=== PATIENT | female | born 1935 | race Caucasian/White ===

== ENCOUNTER 2016-10-18 12:39 | Outpatient (CLI) | payer MEDICARE, OTHER ==
[2016-10-18] MEDS ORDERED: GADOBUTROL 7.5 MMOL/7.5 ML VIAL IVP ONE (15:22)
--- NOTE | 2016-10-19 08:01 | MRI Report ---
EXAMS: MRI BRAIN AND ORBITS WITH AND WITHOUT contrast MRA head EXAM DATE: 10/18/2016 03:21 PM. CLINICAL HISTORY: 81-year-old with history of vision changes, frequent falls, and short-term MRI loss COMPARISON: MR brain 07/11/2006, CT sinuses 11/22/2012. TECHNIQUE: MRI: Multiplanar, multisequence T1-weighted and fluid-sensitive MRI sequences of the brain and orbits were performed. Sequences optimized for routine evaluation. Other: None. Post-processing: None. IV Contrast: 3.75 cc GADAVIST. MRA: Multiplanar, multisequence T1-weighted and fluid-sensitive MRA sequences of the brain were perfo rmed. Other: None. Post-processing: Multiplanar 3D MIP reconstructions. IV Contrast: None. FINDINGS: MRI: Brain Volume: [id number] cortical volume loss that appears progressed from 2006. Parenchyma/Dura: Moderately severe bilateral areas of T2/FLAIR signal hyperintensity that have progre ssed since 2006. Patchy FLAIR signal hyperintensity seen within the zoila. An old chronic lacunar infa rct of the medial left zoila is seen. No areas of restricted diffusion to suggest acute infarct. No ab normal areas of parenchymal susceptibility artifact. No abnormal postcontrast enhancement. Pituitary: Normal. Ventricles/Cisterns: There is a enhancing heterogeneously T2 hyperintense lesion seen posterior to th e left superior orbital fissure that measures 3 x 4 x 6 mm (cc by TRV by AP). The left optic nerve is not well-visualized but there is suspected mass effect. Review of CT sinuses 11/22/2012 demonstrate a well-circumscribed lucent lesion within the lesser wing of the left sphenoid (series 3, image 21 on study of 11/22/2012). No flow-related enhancement seen within this lesion on the MRA sequence. No abno rmal extra-axial fluid collection/mass seen. Ventricles and sulci appear prominent but appropriate for extent of volume loss. Cisterns are patent. Fluid is seen within Meckel's caves. Visualized internal auditory canals appear clear. Sinuses: The visualized paranasal sinuses, mastoid air cells, middle ear cavities are clear. Orbits: Changes of bilateral lens replacement. The clips appear symmetric in size and positioning. No intraorbital mass, inflammatory process, fluid collection, or abnormal postcontrast enhancement seen . The intraorbital optic nerves appear symmetric. The extraocular muscles appear symmetric with no ab normal postcontrast enhancement. Vasculature: There is a cut off of the right P1/P2 segment with reconstitution of flow of distal P2 s egment. Otherwise visualized major intracranial flow voids are maintained. Dural sinuses appear paten t. Bones: Normal. Other: None. MRA: RIGHT Internal Carotid (ICA): No aneurysm, stenosis or anomaly. Middle Cerebral (MCA): No aneurysm, stenosis or anomaly. Anterior Cerebral (AMY): Hypoplastic and likely absent right A1 segment. Right A2 segment appears nor mal and distorted AMY branches are seen secondary to flow through a anterior communicating artery. Th is suggest an isolated right AMY. Posterior Cerebral (BILINGUAL BRANCH MANAGER): There is abrupt cutoff of the right P1 P2 junction with reconstitution of f low within a mid to distal right P2 segment. Distal BILINGUAL BRANCH MANAGER branches appear normal. Posterior Communicating (P-COM): Not definitively see. No aneurysm. Vertebral: No aneurysm, stenosis or anomaly in the visualized upper vertebral artery. LEFT Internal Carotid (ICA): No aneurysm, stenosis or anomaly. Middle Cerebral (MCA): No aneurysm, stenosis or anomaly. Anterior Cerebral (AMY): No aneurysm, stenosis or anomaly. Posterior Cerebral (BILINGUAL BRANCH MANAGER): No aneurysm, stenosis or anomaly. Posterior Communicating (P-COM): Not definitively seen. No aneurysm. Vertebral: No aneurysm, stenosis or anomaly in the visualized upper vertebral artery. MIDLINE Anterior Communicating (A-COM): No aneurysm, stenosis or anomaly. Basilar artery: No aneurysm, stenosis, or anomaly. Other: None. IMPRESSION: MR brain 1. There is enhancing lesion within the lesser wing of the left sphenoid near the superior orbital fi ssure that measures 3 x 4 x 6 mm (CC by TR AP). A well-circumscribed lucent lesion is seen within the lesser wing of sphenoid on CT 11/22/2012. There is no flow-related enhancement seen on MRA sequence. Finding is nonspecific but may represent a potential meningioma though other possible bone pathology is not excluded. The course of the left optic nerve is not well-visualized but there is suspected mas s effect on the left optic nerve due to the enhancing mass. 2. No acute infarct, intracranial hemorrhage, additional mass, hydrocephalus, or additional abnormal postcontrast enhancement. 3. Moderate to severe white matter changes that have progressed since 2006 and may represent sequela of chronic small vessel ischemic disease. 4. No orbital mass, inflammatory process, fluid collection, or abnormal postcontrast enhancement seen . MRA head 1. Abrupt cutoff of the right P1/P2 junction with reconstitution of flow within a mid right P2 segmen t. Finding may represent chronic high grade stenosis. 2. Isolated right AMY. 3. No intracranial aneurysm seen. [facility] Referring Provider Line: [phone] SITE ID: [id number]
== END 2016-10-18 12:40 | disposition home or self-care (01) ==
LOC: DI 12:39
PROVIDERS: ATTEND Physician Assistant
DX: R29.6 Repeated falls (principal); G93.9 Disorder of brain, unspecified; R41.3 Other amnesia; H53.9 Unspecified visual disturbance
CPT/HCPCS: 70544; 70553; A9585

== ENCOUNTER 2018-11-22 10:19 | Outpatient (CLI) | payer MEDICARE, OTHER ==
--- NOTE | 2018-11-22 18:28 | XRAY Report ---
Reason: LOW BACK PAIN Procedure Date: 11/22/2018 Accession Number: [id number] / [id number] Procedure: XRS - Lumbar Spine 2 View CPT Code: FULL RESULT: EXAM: LUMBOSACRAL SPINE RADIOGRAPHY EXAM DATE: 11/22/2018 10:55 AM HISTORY: LOW BACK PAIN TECHNIQUE: AP, lateral and lateral lumbosacral 3 view exam COMPARISON: None FINDINGS: Mild mid lumbar convex right curvature. Very limited assessment of the upper to mid lumbar spine secondary to curvature and degenerative disease. There also appears to be a severe old appearing compression fracture of L2. Moderate to severe diffuse degenerative disk disease is noted with disk space narrowing at each level but most prominent at L4-L5 and L5-S1 where there is also some endplate sclerosis. No apparent spondylolisthesis. Other: Mild bilateral SI joint degenerative arthritis. IMPRESSION: Mild scoliosis, moderate to severe diffuse degenerative disk disease, old Appearing severe compression fracture of L2. Limited because of suboptimal projection angles. [facility]
--- NOTE | 2018-11-22 18:50 | XRAY Report ---
Reason: THORACIC BACK PAIN Procedure Date: 11/22/2018 Accession Number: [id number] / [id number] Procedure: XRS - Thoracic Spine 2 View CPT Code: FULL RESULT: EXAM: THORACIC SPINE RADIOGRAPHY EXAM DATE: 11/22/2018 10:55 AM HISTORY: THORACIC BACK PAIN. TECHNIQUE: AP, lateral and swimmers, 3 view exam COMPARISON: None. FINDINGS: Normal alignment. No acute fracture. T12 has a mild old appearing compression deformity. There is mild degenerative disk disease with disk space narrowing at the upper thoracic spine from T1-T6. T6-T11 has moderate degenerative disk disease with moderate disk space narrowing, small osteophyte formation and some endplate irregularity. Limited assessment on the AP view because of suboptimal projection angle. IMPRESSION: Multilevel mild to moderate degenerative disk disease. Old mild compression fracture at T12. [facility]
== END 2018-11-22 10:20 | disposition home or self-care (01) ==
LOC: DI.S 10:19
PROVIDERS: ATTEND Physician Assistant
DX: M51.36 Other intervertebral disc degeneration, lumbar region (principal); M51.37 Other intervertebral disc degeneration, lumbosacral region; M47.898 Other spondylosis, sacral and sacrococcygeal region; M51.34 Other intervertebral disc degeneration, thoracic region; M43.8X4 Other specified deforming dorsopathies, thoracic region
CPT/HCPCS: 72070; 72100

== ENCOUNTER 2021-04-11 08:00 | Outpatient (CLI) | payer MEDICARE, OTHER ==
[2021-04-11 20:02] LABS: BASOPHILS # (AUTO) 0.1 10^3/uL (0.0-0.1); BASOPHILS % (AUTO) 0.7 %; EOSINOPHILS # (AUTO) 0.2 10^3/uL (0.0-0.7); EOSINOPHILS % (AUTO) 2.8 %; HGB - HEMOGLOBIN 14.7 g/dL (12.0-16.0); LYMPHOCYTES # (AUTO) 1.1 10^3/uL (1.5-3.5); LYMPHOCYTES % (AUTO) 14.7 %; MEAN CORPUSCULAR HEMOGLOBIN 29.2 pg (27.0-31.0); MEAN CORPUSCULAR HGB CONC 32.7 g/dL (32.0-36.0); MEAN CORPUSCULAR VOLUME 89.5 fL (81.0-99.0); MEAN PLATELET VOLUME 10.1 fL (7.9-10.8); MONOCYTES # (AUTO) 0.3 10^3/uL (0.0-1.0); MONOCYTES % (AUTO) 4.7 %; NEUTROPHILS # (AUTO) 5.6 10^3/uL (1.5-6.6); NEUTROPHILS % (AUTO) 76.7 %; PLT - PLATELET COUNT 235 10^3/uL (130-450); RED BLOOD COUNT 5.03 10^6/uL (4.20-5.40); RED CELL DISTRIBUTION WIDTH 13.4 % (12.0-15.0); WHITE BLOOD COUNT 7.3 x10^3/uL (4.8-10.8)
[2021-04-11 20:22] LABS: ALBUMIN 4.1 g/dL (3.2-5.5); ALBUMIN/GLOBULIN RATIO 1.3 (1.0-2.2); BILIRUBIN,TOTAL 0.5 mg/dL (0.2-1.0); CALCIUM 9.3 mg/dL (8.5-10.3); CREATININE 1.1 mg/dL (0.4-1.0); TOTAL PROTEIN 7.3 g/dL (6.7-8.2)
[2021-04-11 20:30] LABS: THYROID STIMULATING HORMONE 1.53 uIU/mL (0.34-5.60)
[2021-04-11 20:35] LABS: FERRITIN 70.4 ng/mL (11.0-306.8)
[2021-04-11 20:55] LABS: ESTIMATED AVERAGE GLUCOSE 169 mg/dL (70-100); HEMOGLOBIN A1c% 7.5 % (4.27-6.07)
== END 2021-04-11 23:59 | disposition home or self-care (01) ==
LOC: LAB.S 08:00
PROVIDERS: ATTEND Physician Assistant Medical
DX: I10 Essential (primary) hypertension (principal); D64.9 Anemia, unspecified; R42 Dizziness and giddiness; E11.9 Type 2 diabetes mellitus without complications; R41.3 Other amnesia
CPT/HCPCS: 36415; 80053; 82728; 83036; 83540; 84443; 84466; 85025

== ENCOUNTER 2023-04-22 13:37 | Outpatient (CLI) | payer MEDICARE | END 2023-04-22 13:38 | disposition critical access hospital (66) | LOC: EMS 13:37 | DX: R42 Dizziness and giddiness (principal); R11.2 Nausea with vomiting, unspecified; S51.011A Laceration without foreign body of right elbow, initial encounter; S40.022A Contusion of left upper arm, initial encounter; W18.30XA Fall on same level, unspecified, initial encounter; Y92.003 Bedroom of unspecified non-institutional (private) residence as the place of occurrence of the external cause | CPT/HCPCS: A0425; A0427 ==

== ENCOUNTER 2023-04-22 14:11 | Emergency (ER) | payer MEDICARE ==
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
[2023-04-22 14:58] LABS: BASOPHILS % (AUTO) 0.3 %; EOSINOPHILS % (AUTO) 0.1 %; HCT - HEMATOCRIT 39.6 % (37.0-47.0); HGB - HEMOGLOBIN 12.8 g/dL (12.0-16.0); LYMPHOCYTES # (AUTO) 0.4 10^3/uL (1.5-3.5); MEAN CORPUSCULAR HEMOGLOBIN 28.4 pg (27.0-31.0); MEAN CORPUSCULAR HGB CONC 32.3 g/dL (32.0-36.0); MONOCYTES # (AUTO) 0.6 10^3/uL (0.0-1.0); MONOCYTES % (AUTO) 4.5 %; NEUTROPHILS # (AUTO) 11.7 10^3/uL (1.5-6.6); NEUTROPHILS % (AUTO) 91.8 %; PLT - PLATELET COUNT 225 10^3/uL (130-450); RED CELL DISTRIBUTION WIDTH 13.9 % (12.0-15.0); WHITE BLOOD COUNT 12.8 x10^3/uL (4.8-10.8)
[2023-04-22 15:17] LABS: ALBUMIN 4.2 g/dL (3.2-5.5); ALBUMIN/GLOBULIN RATIO 1.6 (1.0-2.2); BILIRUBIN,TOTAL 0.7 mg/dL (0.2-1.0); CALCIUM 9.8 mg/dL (8.5-10.3); CREATININE 0.9 mg/dL (0.6-1.3); TOTAL PROTEIN 6.9 g/dL (6.4-8.9)
[2023-04-22] MEDS: SODIUM CHLORIDE 0.9% 1,000 ML IV STA (15:53)
--- NOTE | 2023-04-22 16:07 | XRAY Report ---
PROCEDURE: Chest 1V INDICATIONS: elevated trop TECHNIQUE: One view of the chest was acquired. COMPARISON: None. FINDINGS: Surgical changes and devices: None. Lungs and pleura: No pleural effusions or pneumothorax. Lungs are clear. Mediastinum: Mediastinal contours appear normal. Heart size is normal. Aortic arch is calcified ind icating atherosclerosis. Bones and chest wall: No suspicious bony lesions. Overlying soft tissues appear unremarkable. Healing deformity of right mid humeral shaft fracture. IMPRESSION: No acute cardiopulmonary process. Reviewed by: Karol Drew MD on 04/22/2023 4:06 PM PST Approved by: Karol Drew MD on 04/22/2023 4:06 PM PST Station ID: [id number]
[2023-04-22 16:10] LABS: BILIRUBIN,URINE NEGATIVE (NEGATIVE); GLUCOSE, URINE (UA) 100 mg/dL (NEGATIVE); KETONES,URINE (UA) TRACE mg/dL (NEGATIVE); LEUKOCYTE ESTERASE, URINE NEGATIVE (NEGATIVE); NITRITE,URINE NEGATIVE (NEGATIVE); OCCULT BLOOD,URINE NEGATIVE (NEGATIVE); PROTEIN,URINE NEGATIVE (NEGATIVE); UROBILINOGEN,URINE 0.2 (NORMAL) E.U./dL (NORMAL)
[2023-04-22 16:15] LABS: CLARITY,URINE CLEAR (CLEAR)
[2023-04-22] MEDS: ASPIRIN CHEW 81 MG TABLET PO STA (16:15)
--- NOTE | 2023-04-22 17:15 | CT Report ---
PROCEDURE: Head WO INDICATIONS: weakness TECHNIQUE: Noncontrast 4.5 mm thick angled axial sections acquired from the foramen magnum to the vertex. For r adiation dose reduction, the following was used: automated exposure control, adjustment of mA and/or kV according to patient size. COMPARISON: None. FINDINGS: Image quality: Excellent. CSF spaces: Basal cisterns are patent. No extra-axial fluid collections. Ventricles are normal in size and shape. Brain: No midline shift. No intracranial masses or hemorrhage. Frey-white matter interface is norm al. Age-related involutional changes and moderate periventricular white matter hypodensity consisten t with microvascular ischemic changes. Small left basal ganglia lacunar infarcts. Skull and face: Incidental note of lucency in the left parietal calvarium near the vertex without def inite extension to the inner table. See series 4 image 28 series 6 image 33. Questionable outer table lucency in the posterior parieto-occipital region. See series 6 image 36 or series 4 image 23. Sinuses: Visualized sinuses and mastoids are clear. IMPRESSION: No CT evidence of acute intracranial process. Age-related and chronic microvascular ischemic changes. Subtle osseous changes in the left occipital parietal calvarium. If there is a known primary malignan cy, these may be suspicious for metastatic disease. Clinical correlation recommended. Reviewed by: Amena Soliman MD on 04/22/2023 5:13 PM PST Approved by: Amena Soliman MD on 04/22/2023 5:13 PM PST Station ID: [id number]
[2023-04-22] MEDS ORDERED: iohexoL-300 100 ML VIAL ONE (17:44)
[2023-04-22] MEDS: iohexoL-300 100 ML VIAL IVP ONE (18:31)
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
--- NOTE | 2023-04-22 21:13 | CT Report ---
PROCEDURE: Abdomen/Pelvis W INDICATIONS: Skull lesions, possible metastases IV only CONTRAST: 80ml omni 300 TECHNIQUE: After the administration of intravenous contrast, a CT scan of the abdomen and pelvis was performed. Images were recorded and evaluated at appropriate window settings. Reformats: coronal and sagittal. F or radiation dose reduction, the following was used: automated exposure control, adjustment of mA and /or kV according to patient size. COMPARISON: None. FINDINGS: Image quality: Diagnostic. Lower chest: Dictated separately. Liver: Mild steatosis. No solid mass. Small segment 8 cyst. Gallbladder and biliary tree: Dependent sludge and cholelithiasis. No wall thickening. No intra or ex trahepatic biliary dilatation. No choledocholithiasis. Spleen: Normal size spleen with numerous noncalcified round hypodensities throughout. Pancreas: 1.5 cm ovoid circumscribed hypodensity in the ventral pancreatic head is present. Mild panc reatic prominence without meseret dilatation. No other pancreatic mass. Adrenals: No adrenal nodule. Kidneys and ureters: Symmetric enhancement. No enhancing mass. Nonobstructing left intrarenal calcifi cation measuring about 4 mm. No hydronephrosis. Minor right hydroureter. No ureteral calcification. Stomach, bowel and peritoneum: Normal stomach and small bowel loops. Increased quantity of solid stoo l diffusely throughout colon. No suspicious wall thickening. The appendix was not visible. Lymph nodes: No central or retroperitoneal adenopathy. Vessels: Normal caliber vasculature. PELVIS Reproductive organs: Anteverted uterus demonstrates peripheral calcification, age-appropriate. Bladder: Distended urinary bladder without significant wall thickening. Pelvic lymph nodes: No pelvic adenopathy by size criteria. Bones: Severe chronic appearing L2 compression fracture. Severe multilevel degenerative disc and endp late changes in the lumbar spine. Other: No significant ventral or inguinal hernia. IMPRESSION: Several small round circumscribed lesions throughout the spleen are nonspecific, particularly in the absence of other definite malignant lesions. Both benign and malignant diseases may have this appeara nce Cystic lesion in the pancreatic head, probably benign cystic mass such as IPMN. One-year follow-up is recommended to reassess characteristics. Cholelithiasis. Reviewed by: Amena Soliman MD on 04/22/2023 9:12 PM PST Approved by: Amena Soliman MD on 04/22/2023 9:12 PM PST Station ID: [id number]
[2023-04-22] MEDS: ATORVASTATIN 40 MG TABLET PO STA (21:48)
[2023-04-22] MEDS: NITROGLYCERIN 2% PASTE TOP STA (21:48)
[2023-04-22] MEDS: METOPROLOL 5 MG/5 ML VIAL IVP STA (21:49)
[2023-04-22] MEDS: METOPROLOL TARTRATE 50 MG TABLET PO SCH (22:02)
[2023-04-22] MEDS: ENOXAPARIN 40 MG/0.4 ML SYRINGE SUBQ SCH (22:02)
--- NOTE | 2023-04-22 22:39 | ED Physician Documentation ---
ED Addendum - Addendum Addendum: 04/22/23 22:37 I received signout/turnover of care on this patient from Dr. Garibay; please see his note for complete H&P. In short patient this is a patient who was on the ground for several hours during the day today due to generalized weakness. She has slowly up-trending high-sensitivity troponins over 3 reads, each of which is 2 to 3 hours apart. At the time of turnover care, a bed at an appropriate hospital (with cardiology services for possible NSTEMI) is being looked for. I was put in touch with Dr. Marin (cardiology on-call at [facility], [place]); he agrees patient is appropriate for transfer to his hospital, hospitalist service, telemetry bed. I subsequently spoke with Dr. Crowley (hospitalist at [facility]) who accepts patient for transfer to [facility] [place].
[2023-04-23 02:10] VITALS: O2SAT 96
[2023-04-23 03:35] VITALS: BP 137/64
[2023-04-23] MEDS ORDERED: ASPIRIN CHEW 81 MG TABLET PO SCH (09:00)
== END 2023-04-23 03:45 | disposition short-term general hospital (02) ==
LOC: EDUNIT# → ED 14:11
DX: I21.4 Non-ST elevation (NSTEMI) myocardial infarction (principal); M89.9 Disorder of bone, unspecified; R41.89 Other symptoms and signs involving cognitive functions and awareness; R42 Dizziness and giddiness; R53.1 Weakness; W18.39XA Other fall on same level, initial encounter
CPT/HCPCS: 36415; 70450; 71045; 71260; 74177; 80053; 81003; 82550; 83605; 84484; 85025; 93005; 96372; 96374; 99285; A9270; J1650; Q9967; 81001; 87086

== ENCOUNTER 2023-04-28 12:56 | Outpatient (CLI) | payer MEDICARE | END 2023-04-28 23:59 | disposition E | LOC: EMS 12:56 | DX: I46.9 Cardiac arrest, cause unspecified (principal) ==